=== PATIENT | female | born 1935 | race Caucasian/White ===

== ENCOUNTER 2024-01-10 18:53 | Inpatient (IN) | payer OTHER ==
[~2024-01-10] VITALS: Ht 160 cm; Wt 49.0 kg
[2024-01-10] MEDS: CYCLOBENZAPRINE HCL 10 MG TABLET PO ONE (20:30)
[2024-01-10] MEDS: KETOROLAC 15MG/ML VIAL (15MG/ML) IV ONE (20:30)
[2024-01-10 22:14] LABS: BASOPHILS # (AUTO) 0.02 K/uL (0.00-0.20); BASOPHILS % (AUTO) 0.2 % (0.0-5.0); EOSINOPHILS # (AUTO) 0.02 K/uL (0.00-0.70); EOSINOPHILS % (AUTO) 0.2 % (0.0-8.0); HEMATOCRIT 42.8 % (36-48); IMMATURE GRANULOCYTE ABSOLUTE 0.08 K/uL (0-1); LYMPHOCYTES # (AUTO) 0.9 K/uL (1.0-4.8); LYMPHOCYTES % (AUTO) 7.5 % (21.0-51.0); MEAN CORPUSCULAR HEMOGLOBIN 29.4 pg (27.0-33.0); MEAN CORPUSCULAR HGB CONC 33.6 g/dL (32.0-36.0); MEAN CORPUSCULAR VOLUME 87.3 fL (79-99); MONOCYTES # (AUTO) 1.1 K/uL (0.1-1.0); MONOCYTES % (AUTO) 8.6 % (3.0-13.0); NEUTROPHILS # (AUTO) 10.3 K/uL (1.8-7.7); NEUTROPHILS % (AUTO) 82.9 % (40.0-77.0); PLATELET COUNT (AUTO) 296 K/uL (130-400); RED CELL DISTRIBUTION WIDTH 13.5 % (11.0-15.5); WHITE BLOOD COUNT (AUTO) 12.4 K/uL (4.8-10.8)
[2024-01-10 22:27] LABS: ALBUMIN 3.1 g/dL (3.5-5.0); BILIRUBIN,TOTAL 0.9 mg/dL (0.2-1.0); CREATININE 1.3 mg/dL (0.5-1.0); MAGNESIUM 2.4 mg/dL (1.80-2.40); TOTAL PROTEIN, SERUM 7.1 g/dL (6.0-8.3)
[2024-01-10 22:55] LABS: POTASSIUM 2.7 mmol/L (3.5-5.1)
[2024-01-11] MEDS ORDERED: ONDANSETRON 4MG INJ IV PRN (00:30)
[2024-01-11] MEDS ORDERED: ACETAMINOPHEN 325 MG TAB PO PRN (00:30)
[2024-01-11] MEDS ORDERED: HYDROCODONE/ACETAMINOPHEN 5/325 MG TAB PO PRN (00:30)
[2024-01-11 00:47] LABS: BASOPHILS # (AUTO) 0.02 K/uL (0.00-0.20); BASOPHILS % (AUTO) 0.2 % (0.0-5.0); EOSINOPHILS # (AUTO) 0.04 K/uL (0.00-0.70); EOSINOPHILS % (AUTO) 0.3 % (0.0-8.0); HEMATOCRIT 44.2 % (36-48); IMMATURE GRANULOCYTE ABSOLUTE 0.06 K/uL (0-1); MEAN CORPUSCULAR HEMOGLOBIN 29.6 pg (27.0-33.0); MEAN CORPUSCULAR HGB CONC 33.7 g/dL (32.0-36.0); MEAN CORPUSCULAR VOLUME 87.9 fL (79-99); MONOCYTES # (AUTO) 1.1 K/uL (0.1-1.0); MONOCYTES % (AUTO) 9.5 % (3.0-13.0); NEUTROPHILS # (AUTO) 9.3 K/uL (1.8-7.7); NEUTROPHILS % (AUTO) 80.5 % (40.0-77.0); PLATELET COUNT (AUTO) 304 K/uL (130-400); RED BLOOD CELL COUNT(AUTO) 5.03 MIL/uL (4.00-5.50); RED CELL DISTRIBUTION WIDTH 13.6 % (11.0-15.5); WHITE BLOOD COUNT (AUTO) 11.5 K/uL (4.8-10.8)
[2024-01-11 01:02] LABS: ALBUMIN 3.1 g/dL (3.5-5.0); BILIRUBIN,TOTAL 0.9 mg/dL (0.2-1.0); CREATININE 1.4 mg/dL (0.5-1.0); MAGNESIUM 2.5 mg/dL (1.80-2.40); TOTAL PROTEIN, SERUM 7.1 g/dL (6.0-8.3)
[2024-01-11 01:24] LABS: POTASSIUM 2.8 mmol/L (3.5-5.1)
[2024-01-11] MEDS: 0.9%NACL 1000ML 1,000 ML IV SCH (01:28)
[2024-01-11] MEDS ORDERED: MAGNESIUM 2GM PREMIX 50ML 50 ML IV PRN (01:30)
[2024-01-11] MEDS: POTASSIUM CHLORIDE 10% ELIXIR 20 MEQ/15 ML UDCUP PO PRN (01:49)
[2024-01-11] MEDS: POTASSIUM CHLORIDE 20MEQ/100ML 100 ML IV PRN (01:49)
[2024-01-11 01:53] LABS: ERYTHROCYTE SEDIMENTATION RATE 25 MM/HR (0-30)
[2024-01-11] MEDS: PHARMACY COMMUNICATION MISC SCH (02:10)
[2024-01-11] MEDS ORDERED: FURO40TA5 PO (03:16)
[2024-01-11] MEDS ORDERED: APIX5TAB PO (03:16)
[2024-01-11] MEDS ORDERED: DILT240C97 PO (03:16)
[2024-01-11] MEDS ORDERED: METO-408 PO (03:16)
[2024-01-11] MEDS ORDERED: DAPA10TA PO (03:16)
[2024-01-11] MEDS ORDERED: ATOR20TA65 PO (03:16)
[2024-01-11] MEDS ORDERED: AMIO200T68 PO (03:16)
[2024-01-11 04:13] VITALS: BP 168/83; PULSE 70; RESP 24
[2024-01-11 07:35] LABS: BILIRUBIN,DIRECT 0.3 mg/dL (0.0-0.3); BILIRUBIN,TOTAL 0.9 mg/dL (0.2-1.0)
[2024-01-11 08:00] VITALS: BP 173/78; PULSE 70; RESP 18
[2024-01-11] MEDS ORDERED: CEFTRIAXONE 1G VIAL 1 GM in 0.9%NACL 50ML 50 ML IV SCH (09:00)
[2024-01-11] MEDS: KETOROLAC 15MG/ML VIAL (15MG/ML) IV PRN (09:08)
[2024-01-11] MEDS: FAMOTIDINE 20MG TAB PO SCH (09:08)
[2024-01-11] MEDS: CEFTRIAXONE 1G VIAL IVPB SCH (09:11)
[2024-01-11] MEDS: KCL 20 MEQ ERTAB PO ONE (11:06)
[2024-01-11 12:00] VITALS: BP 142/63; PULSE 71; RESP 20
[2024-01-11] MEDS ORDERED: CALCIUM CARB 500MG CHEW TAB PO SCH (12:00)
[2024-01-11] MEDS ORDERED: CALCITONIN 3.7 ML AEROSOL NS SCH (12:00)
[2024-01-11] MEDS ORDERED: CALCITONIN 400 UNIT VIAL SQ SCH (12:00)
[2024-01-11] MEDS: CALCITONIN 3.7 ML AEROSOL NS SCH (15:28)
[2024-01-11 16:00] VITALS: BP 150/61; PULSE 70; RESP 20
[2024-01-11 18:27] LABS: APPEARANCE,URINE CLEAR (CLEAR); BILIRUBIN,URINE NEGATIVE (NEGATIVE); COLOR,URINE YELLOW (YELLOW); GLUCOSE, URINE (UA) >=1000 mg/dL (NEGATIVE); KETONES,URINE 20 mg/dL (NEGATIVE); LEUKOCYTE ESTERASE ,URINE 25 Leu/uL (NEGATIVE); NITRATE,URINE NEGATIVE (NEGATIVE); OCCULT BLOOD,URINE NEGATIVE (NEGATIVE); PH,URINE 6.5 (5.0-8.0); PROTEIN,URINE 20 mg/dL (NEGATIVE); UROBILINOGEN,URINE 0.2 mg/dL (0.2-1.0)
[2024-01-11 18:29] LABS: ADD UA MICROSCOPIC YES; SQUAMOUS EPITHELIAL CELL,UR RARE /HPF (0-2)
[2024-01-11] MEDS: KCL 20 MEQ ERTAB PO PRN (18:41)
[2024-01-11 19:00] VITALS: BP 147/64; PULSE 70; RESP 20
[2024-01-11] MEDS: DOCUSATE SODIUM 100 MG CAP PO SCH (20:01)
[2024-01-11] MEDS: SENNOSIDES 8.6 MG TABLET PO SCH (20:01)
[2024-01-12] VITALS (9 sets, daily range): BP systolic 112–186; BP diastolic 48–82; PULSE 70–72; RESP 18–20; O2SAT 96
[2024-01-12] MEDS: HYDRALAZINE 20MG/ML VIAL IV ONE (04:49)
[2024-01-12 05:03] LABS: HEMATOCRIT 44.2 % (36-48); MEAN CORPUSCULAR HEMOGLOBIN 29.6 pg (27.0-33.0); MEAN CORPUSCULAR HGB CONC 32.8 g/dL (32.0-36.0); MEAN CORPUSCULAR VOLUME 90.2 fL (79-99); RED BLOOD CELL COUNT(AUTO) 4.9 MIL/uL (4.00-5.50); RED CELL DISTRIBUTION WIDTH 13.7 % (11.0-15.5); WHITE BLOOD COUNT (AUTO) 9.8 K/uL (4.8-10.8)
[2024-01-12 05:08] LABS: CREATININE 1.1 mg/dL (0.5-1.0); POTASSIUM 3.7 mmol/L (3.5-5.1)
[2024-01-12] MEDS: APIXABAN 5 MG TABLET PO SCH (08:36)
[2024-01-12] MEDS: METOPROLOL SUCCINATE 25 MG TAB.SR.24H PO SCH (08:36)
[2024-01-12] MEDS: AMIODARONE 200 MG TABLET PO SCH (08:36)
[2024-01-12] MEDS: FUROSEMIDE 40 MG TABLET PO SCH (08:36)
[2024-01-12] MEDS ORDERED: CALCIUM CARB 500MG CHEW TAB PO SCH (09:00)
[2024-01-12] MEDS: DILTIAZEM HCL 240 MG PO SCH (09:00)
[2024-01-12 12:21] LABS: HEPATITIS A IGM ANTIBODY Non-Reactive (Nonreactive); HEPATITIS B CORE IGM ANTIBODY Non-Reactive (Negative); HEPATITIS B SURFACE ANTIGEN Non-Reactive (Nonreactive); HEPATITIS C ANTIBODY Non-Reactive (Nonreactive)
[2024-01-12] MEDS: LIDOCAINE 4% ADH..PATCH TP ONE (13:32)
[2024-01-12] MEDS: METOPROLOL SUCCINATE 25 MG TAB.SR.24H PO ONE ×2 (13:42→18:01)
[2024-01-12] MEDS: CALCITONIN 3.7 ML AEROSOL NS SCH (15:40)
[2024-01-12] MEDS ORDERED: LABETALOL 20MG VIAL IV PRN (18:00)
[2024-01-12] MEDS: ATORVASTATIN 20 MG TABLET PO SCH (20:42)
[2024-01-13] VITALS (8 sets, daily range): BP systolic 126–184; BP diastolic 60–83; PULSE 70–72; RESP 14–18; O2SAT 93–96
[2024-01-13 04:16] LABS: HEMATOCRIT 41.9 % (36-48); MEAN CORPUSCULAR HEMOGLOBIN 29.6 pg (27.0-33.0); MEAN CORPUSCULAR HGB CONC 33.4 g/dL (32.0-36.0); MEAN CORPUSCULAR VOLUME 88.6 fL (79-99); RED BLOOD CELL COUNT(AUTO) 4.73 MIL/uL (4.00-5.50); RED CELL DISTRIBUTION WIDTH 13.6 % (11.0-15.5); WHITE BLOOD COUNT (AUTO) 9.4 K/uL (4.8-10.8)
[2024-01-13 04:30] LABS: POTASSIUM 3.1 mmol/L (3.5-5.1)
[2024-01-13] MEDS: LABETALOL 20MG SYG IV PRN (04:53)
[2024-01-13] MEDS: METOPROLOL SUCCINATE 50 MG TAB.SR.24H PO SCH (10:31)
[2024-01-13] MEDS: CALCIUM CARB 500MG CHEW TAB PO SCH (10:31)
[2024-01-13] MEDS: LIDOCAINE 4% ADH..PATCH TP SCH (10:33)
[2024-01-14 03:18] VITALS: BP 161/74; PULSE 71; RESP 18
[2024-01-14 03:59] LABS: HEMATOCRIT 41.3 % (36-48); MEAN CORPUSCULAR HEMOGLOBIN 29.7 pg (27.0-33.0); MEAN CORPUSCULAR HGB CONC 33.2 g/dL (32.0-36.0); MEAN CORPUSCULAR VOLUME 89.6 fL (79-99); RED BLOOD CELL COUNT(AUTO) 4.61 MIL/uL (4.00-5.50); RED CELL DISTRIBUTION WIDTH 13.6 % (11.0-15.5); WHITE BLOOD COUNT (AUTO) 8.9 K/uL (4.8-10.8)
[2024-01-14 04:02] LABS: CREATININE 0.9 mg/dL (0.5-1.0); POTASSIUM 3.6 mmol/L (3.5-5.1)
[2024-01-14 08:20] VITALS: BP 174/82; PULSE 72; RESP 18
[2024-01-14 08:35] VITALS: O2SAT 96
[2024-01-14 12:03] VITALS: BP 154/71; PULSE 70; RESP 18
[2024-01-14] MEDS ORDERED: LIDO1ADH71 TP (12:26)
[2024-01-14] MEDS: ACETAMINOPHEN 325 MG TAB PO PRN (13:56)
[2024-01-14 16:24] VITALS: BP 113/53; PULSE 76; RESP 18
== END 2024-01-14 18:30 | disposition home or self-care (01) | DRG 552 ==
LOC: EDH 18:53 → EDHIP 01-11 00:26 → 4AH 01-11 02:40
PROVIDERS: ADMIT Internal Medicine; ATTEND Internal Medicine
DX: S32.011A Stable burst fracture of first lumbar vertebra, initial encounter for closed fracture (principal); N17.9 Acute kidney failure, unspecified; E87.6 Hypokalemia; R74.01 Elevation of levels of liver transaminase levels; D72.829 Elevated white blood cell count, unspecified; I50.9 Heart failure, unspecified; I11.0 Hypertensive heart disease with heart failure; X58.XXXA Exposure to other specified factors, initial encounter; M48.061 Spinal stenosis, lumbar region without neurogenic claudication; E78.5 Hyperlipidemia, unspecified; Z88.5 Allergy status to narcotic agent; Y93.89 Activity, other specified; Y92.89 Other specified places as the place of occurrence of the external cause; Y99.8 Other external cause status
CPT/HCPCS: 36415; 72131; 72192; 80048; 80053; 80074; 80076; 81001; 82306; 83735; 84132; 85025; 85027; 85651; G0378; J0360; J0696; J1885; J3480; J7030